=== PATIENT | male | born 1960 ===

== ENCOUNTER 2025-02-25 20:07 | Emergency (ER) | payer BC, SELFPAY ==
[2025-02-25 20:11] VITALS: BP 150/84
[2025-02-25 20:42] LABS: Hematocrit 43.5 % (39.0-52.0); Hemoglobin 14.8 g/dL (13.0-18.0); Mean Corp Hgb Conc. 34.0 g/dL (33.0-37.0); Mean Corpuscular Volume 88.2 fL (80.0-94.0); Nucleated Red Blood Cells % 0 % (-); Platelet Count 185 10^3/uL (130-400); Red Cell Dist. Width 13.3 % (11.5-14.5)
[2025-02-25 20:58] LABS: ALT (SGPT) 20 U/L (0-50); AST (SGOT) 21 U/L (17-59); Albumin 4.9 g/dl (3.5-5.0); Alkaline Phosphatase 62 U/L (38-126); Blood Urea Nitrogen 21 mg/dl (9-20); Calcium 9.6 mg/dl (8.4-10.2); Carbon Dioxide 30 mmol/L (22-30); Chloride 101 mmol/L (98-107); Glucose 103 mg/dl (70-99); Lipase 66 U/L (23-300); Potassium 4.4 mmol/L (3.5-5.1); Sodium 138 mmol/L (135-145); Total Protein 8.2 g/dl (6.3-8.2); eGFR > 60.00
[2025-02-26 00:09] VITALS: BMI 33.4
[2025-02-26 00:17] VITALS: BP 138/87
--- NOTE | 2025-02-26 00:38 | ED.GENMED ---
History of Present Illness
General
Chief Complaint: Abdominal Pain
Time Seen by Provider: 02/25/25 23:55
History of Present Illness
History of Present Illness:
64-year-old male with history of diverticulitis presenting for lower abdominal discomfort. Patient reports for the past 2 days he has been having lower abdominal pain and frequent trips to the bathroom with loose stools. Reports similar symptoms
about 5 weeks ago which time he was diagnosed with diverticulitis. He was treated with Augmentin with improvement of symptoms, resolution, however symptoms returned in the past 2 days. Denies fever. Denies chest pain or difficulty breathing.
Reports history of hernia, otherwise denies abdominal surgeries. Denies additional acute medical complaints
Phy Exam
Physical Exam
Physical Exam:
General: Well-appearing, no clinical signs of dehydration, nontoxic and in no acute distress
HEENT: protecting airway
Neck: appears supple
CV: Normal heart rate, regular rhythm
Resp: No accessory muscle use, no increased work of breathing, lungs clear to auscultation bilaterally
Abd: Soft and non-distended, mild tenderness to suprapubic and left lower quadrant abdomen without rebound or guarding
Extremities: No deformities, no swelling, no erythema, pulses and sensation intact
Neuro: alert, no focal neurologic deficit
: deferred
Rectal: deferred
Psych: Normal affect
Skin: Intact
Course
Orders/Labs/Results
Orders:
Orders
02/25/25 20:33
Complete Blood Count/With Diff Urgent
Comprehensive Metabolic Panel Urgent
Lactic Acid Urgent
Lipase Urgent
02/26/25 00:26
CT Abd/pelvis W Iv Cont Urgent
Comment:
Reason For Exam: lower abd pain, hx diverticulitis
02/26/25 01:34
Urinalysis Reflex To Culture Urgent
Date Specimen was Collected: 02/26/25
Time Specimen was Collected: 01:24
02/26/25 02:50
LevoFLOXacin [Levaquin] 750 mg PO NOW STA
MetroNIDAZOLE [Flagyl] 500 mg PO NOW STA
Abnormal Lab Results
02/25/25
20:33
WBC 16.3 H 10^3/uL
(4.8-10.8)
MPV 12.4 H fL
(7.4-10.4)
Abs Immat Gran (auto) 0.1 H 10^3/uL
(0-0.05)
Absolute Neuts (auto) 12.6 H 10^3/uL
(1.4-6.5)
Absolute Monos (auto) 1.5 H 10^3/uL
(0.1-0.6)
Neutrophils % 77.1 H %
(42.2-75.2)
Lymphocytes % 11.6 L %
(20.5-51.1)
Monocytes % 9.4 H %
(1.7-9.3)
BUN 21 H mg/dl
(9-20)
Glucose 103 H mg/dl
(70-99)
02/25/25 20:33
02/25/25 20:33
Vital Signs
Initial and Last Documented VS:
Initial Vital Signs
Temp Pulse Resp BP Pulse Ox
98.0 F 92 20 150/84 97
02/25/25 20:11 02/25/25 20:11 02/25/25 20:11 02/25/25 20:11 02/25/25 20:11
Last Documented Vital Signs
Temp Pulse Resp BP Pulse Ox
98.0 F 98 18 138/87 98
02/25/25 20:11 02/26/25 00:17 02/26/25 02:03 02/26/25 00:17 02/26/25 02:03
MDM/Problems Addressed
MDM/Problems Addressed:
64-year-old male presenting for lower abdominal discomfort. Vital signs on arrival are significant for mild hypertension.
On exam patient is resting comfortably, nontoxic. Benign cardiac and pulmonary exam. On abdominal exam, mild generalized lower abdominal tenderness, most prominent in the left lower quadrant and suprapubic region. Concern for diverticulitis,
likely new infection given resolution after antibiotics 5 weeks ago. Lower suspicion for concerning features such as abscess or perforation given well appearance. Laboratory analysis obtained, which does show leukocytosis. For this reason we will
obtain CT imaging for further assessment. Patient declining any pain medications at this time.
02:45 -CT is consistent with sigmoid diverticulitis without complicating features. Unclear if this is failure of outpatient therapy versus a new infection. Given timeframe, suspect likely patient. Patient remains hemodynamically stable. All
inpatient versus outpatient treatment. Patient would prefer outpatient therapy. Will switch antibiotics to levofloxacin and metronidazole. Advised outpatient GI follow-up. Return precautions discussed and patient verbalized understanding
*Pulse Oximetry
SaO2: 99
Oxygen Mode of Delivery: Room air
Patient hypoxic: no
*Critical Care Note
Total Time (30-74mins, 75-104mins- exclusive of procedures): Not Applicable
ED Attending Note
-
Portions of this chart may have been created with voice recognition software.� Occasional wrong word or��sound alike� substitutions may have occurred due to the inherent limitations of voice recognition software.
Discharge Plan
Departure
Patient Disposition: Home (Routine Discharge)
Date of Disposition: 02/26/25
Time of Disposition: 02:52
Patient with high blood pressure during this ER visit?: No
Condition: Good
Discharge Problem:
Diverticulitis of sigmoid colon
Instructions: Diverticulitis (DC)
Prescriptions:
New
metronidazole 500 mg tablet
500 mg PO Q8H 10 Days Qty: 30 0RF
levofloxacin 750 mg tablet
750 mg PO DAILY 10 Days Qty: 10 0RF
Referrals:
Pardeep Lawson MD [Family Provider, Family Practice]
Corey Briseno DO [Active, Gastroenterology]
Activity Restrictions/Additional Instructions:
You were seen in the emergency department for abdominal pain
You were found to have acute diverticulitis of your sigmoid colon. You were prescribed both metronidazole and levofloxacin. Please take as directed and follow-up with a GI doctor.
Please follow-up closely with your primary care physician.
Return to the emergency department for any worsening of your symptoms, or any development of chest pain, difficulty breathing, abdominal pain with persistent vomiting and inability to tolerate food or liquid by mouth (concern for dehydration),
weakness, headache or confusion, fever greater than 100.4, or any additional symptoms that are concerning to you.
Thank you for choosing [facility].
Interventions
Interventions:
*Risk Screen - Suicide Last Done: 02/26/25 00:09
*General Assessment Last Done: 02/25/25 20:11
*Neglect/Abuse Screening Last Done: 02/26/25 00:09
*ED- Fall Risk Assessment Last Done: 02/26/25 00:09
*ED COVID-19 Vaccine History Last Done: 02/26/25 00:09
YG-Yqiyuj-Wogjtanruz Assessment Last Done: 02/26/25 00:20
Discharge Date and Time
Print Language: MONGOLIAN
[2025-02-26 01:49] LABS: Urine Character Clear (Clear)
[2025-02-26] MEDS: FLAGYL 500 MG PO (03:00)
[2025-02-26] MEDS: LEVAQUIN 750 MG PO (03:00)
[2025-02-26 03:02] VITALS: BP 115/61
== END 2025-02-26 03:09 | disposition home or self-care (01) ==
LOC: EMR 20:07
PROVIDERS: Emergency Medicine; EMERGENCY PHYSICIAN Student in an Organized Health Care Education/Training Program; FAMILY PHYSICIAN Family Medicine
DX: K57.32 Diverticulitis of large intestine without perforation or abscess without bleeding (principal)
CPT/HCPCS: 99284; 74177; 80053; 81003; 83605; 83690; 85025; Q9967

== ENCOUNTER 2025-05-10 06:11 | Day surgery (SDC) | payer BC, SELFPAY | END 2025-05-10 08:42 | disposition home or self-care (01) | LOC: GI 06:11 | PROVIDERS: ATTENDING PHYSICIAN Internal Medicine Gastroenterology | DX: Z12.11 Encounter for screening for malignant neoplasm of colon (principal); K63.89 Other specified diseases of intestine; K57.30 Diverticulosis of large intestine without perforation or abscess without bleeding; K64.8 Other hemorrhoids; Z86.0100 Personal history of colon polyps, unspecified | CPT/HCPCS: 45380; 88305 ==